=== PATIENT | male | born 1960 | race Caucasian/White ===

== ENCOUNTER 2023-03-27 11:04 | Emergency (ER) | payer MEDICAID, OTHER ==
[~2023-03-27] VITALS: Ht 180.3 cm; Wt 90.0 kg
[2023-03-27 11:59] LABS: Basophils # (auto) 0 10 ^3/uL (0-0.2); Basophils % (auto) 0.3 % (0.0-2.0); Eosinophils # (auto) 0.1 10 ^3/uL (0-0.8); Eosinophils % (auto) 1.2 % (0.0-7.0); Hematocrit 40.4 % (41.0-53.0); Hemoglobin 13.8 g/dL (13.5-17.5); Lymphocytes # (auto) 1.8 10 ^3/uL (0.4-5.4); Lymphocytes % (auto) 17.1 % (10.0-50.0); Mean Corpuscular Hemoglobin 32.4 pg (28.0-32.0); Mean Corpuscular Hgb Conc. 34.1 g/dL (32.0-36.0); Monocytes # (auto) 0.8 10 ^3/uL (0-1.3); Monocytes % (auto) 7.4 % (0.0-12.0); Neutrophils # (auto) 7.8 10 ^3/uL (1.6-8.6); Nucleated Red Blood Cells % 0.1 %; Red Blood Cells 4.25 10^6/uL (4.5-5.90); Red Cell Distribution Width 14.1 % (11.8-14.3); White Blood Cell 10.5 10^3/uL (4.4-10.8)
[2023-03-27 12:14] LABS: Albumin 3.9 g/dL (3.4-5.0); BUN/Creatinine Ratio 16.5 (10.0-20.0); Calcium 9.2 mg/dL (8.5-10.1); Potassium 4.2 mmol/L (3.5-5.1)
[2023-03-27 12:15] LABS: INR 1.03 (0.9-1.15)
[2023-03-27 12:16] LABS: Bilirubin, Total 0.5 mg/dL (0.2-1.0); Total Protein 7.1 g/dL (6.4-8.2)
[2023-03-27 13:45] LABS: Urine Bacteria NONE SEEN /hpf (None Seen); Urine Blood Negative /uL (Negative); Urine Specific Gravity 1.019 (1.001-1.035); Urine WBC <1 /hpf (0 - 3)
[2023-03-27 15:14] VITALS: BP 170/90
== END 2023-03-27 15:16 | disposition home or self-care (01) ==
LOC: ER 11:04
DX: G45.9 Transient cerebral ischemic attack, unspecified (principal)
CPT/HCPCS: 36415; 70450; 80053; 81001; 84484; 85025; 85379; 85610; 85730; 93005

== ENCOUNTER 2024-03-10 22:33 | Emergency (ER) | payer MEDICAID ==
[~2024-03-10] VITALS: Ht 180.3 cm; Wt 86.0 kg
[2024-03-11] MEDS ORDERED: CHL25C PO (00:21)
[2024-03-11 00:44] VITALS: BP 105/75; PULSE 75; RESP 16; TEMP 98; O2SAT 99
== END 2024-03-11 01:46 | disposition home or self-care (01) ==
LOC: EDBD 22:33 → ER 22:33
DX: F10.129 Alcohol abuse with intoxication, unspecified (principal); I10 Essential (primary) hypertension; Y90.0 Blood alcohol level of less than 20 mg/100 ml
CPT/HCPCS: 93005